=== PATIENT | female | born 1995 | race African-American/Black ===

== ENCOUNTER 2022-08-21 23:43 | Emergency (ER) | payer OTHER ==
[~2022-08-21] VITALS: Ht 162.6 cm; Wt 84.7 kg
[2022-08-21 23:44] VITALS: BP 129/79
[2022-08-21] MEDS ORDERED: DIPH-435 PO (23:52)
[2022-08-22] MEDS ORDERED: PRED20TA PO (02:58)
[2022-08-22] MEDS ORDERED: FAMOTIDINE 20 MG TAB PO ONE (03:00)
[2022-08-22] MEDS ORDERED: predniSONE 20 MG TAB PO ONE (03:00)
== END 2022-08-22 03:29 | disposition home or self-care (01) ==
LOC: M ED 23:43
DX: T78.40XA Allergy, unspecified, initial encounter (principal); Z88.7 Allergy status to serum and vaccine; Z79.52 Long term (current) use of systemic steroids; Z79.899 Other long term (current) drug therapy
CPT/HCPCS: 99283; J7512